=== PATIENT | male | born 1990 | race Caucasian/White ===

== ENCOUNTER 2017-01-10 05:16 | Emergency (ER) | payer BC ==
[~2017-01-10] VITALS: Ht 172.7 cm; Wt 102.2 kg
[2017-01-10] MEDS ORDERED: SODIUM CHLORIDE 0.9% 1,000 ML IV ONE (06:16)
[2017-01-10 06:30] LABS: BASOPHILS % 0.5 % (0.0-2.0); HEMATOCRIT. 44.5 % (42.0-52.0); HEMOGLOBIN. 15.4 g/dL (14.0-18.0); LYMPHOCYTES % 30.8 % (20.0-50.0); MEAN CORPUSCULAR HEMOGLOBIN 30.1 pg (28.0-32.0); MEAN CORPUSCULAR VOLUME 87.1 fL (80.0-94.0); MEAN PLATELET VOLUME 7.6 fl (7.4-10.4); MONOCYTES % 10.1 % (2.0-8.0); NEUTROPHILS % 55.6 % (40.0-76.0); PLATELET 266 x1000/uL (130-400); RED BLOOD CELL COUNT 5.11 mill/uL (4.7-6.1); RED CELL DISTRIBUTION WIDTH 13.2 % (11.6-14.6)
[2017-01-10] MEDS ORDERED: LORAZEPAM 2MG/ML CPJ IV ONE ×2 (06:30→08:00)
[2017-01-10 06:35] LABS: CHLORIDE 109 mEq/L (98-107)
[2017-01-10 06:38] LABS: INR 1.1; PARTIAL THROMBOPLASTIN TIME 29.8 sec (24.0-34.0); PROTHROMBIN TIME 10.9 sec
[2017-01-10 06:44] LABS: CARBON DIOXIDE 24 mEq/L (21-32)
[2017-01-10 07:22] LABS: CREATINE KINASE 156 IU/L (39-308); CREATINE KINASE MB FRACTION < 0.5 ng/mL (0.5-3.6); TROPONIN I < 0.02 ng/mL (0.00-0.04)
[2017-01-10 07:56] LABS: GLUCOSE URINE NEGATIVE (NEGATIVE); KETONES URINE NEGATIVE (NEGATIVE); LEUKOCYTE ESTERASE URINE NEGATIVE (NEGATIVE); NITRITE URINE NEGATIVE (NEGATIVE); OCCULT BLOOD URINE 3+ (NEGATIVE); PH URINE 5.5 (4.5-8.0); PROTEIN URINE NEGATIVE (NEGATIVE); SPECIFIC GRAVITY URINE 1.016 (1.005-1.030); UROBILINOGEN URINE 0.2 E.U./dL (0.2-1.0)
[2017-01-10 07:57] LABS: CLARITY URINE CLEAR (CLEAR); COLOR URINE YELLOW (YELLOW)
[2017-01-10 08:07] LABS: *AMPHETAMINES SCREEN URINE NEGATIVE (NEGATIVE); *BARBITURATES SCREEN URINE NEGATIVE (NEGATIVE); *BENZODIAZEPINES SCREEN URINE NEGATIVE (NEGATIVE); *COCAINE SCREEN URINE PRESUMTIVE POSITIVE (NEGATIVE); CANNABINOID URINE SCREEN NEGATIVE (NEGATIVE); METHADONE URINE SCREEN NEGATIVE (NEGATIVE); OPIATES URINE SCREEN NEGATIVE (NEGATIVE); PHENCYCLIDINE URINE SCREEN NEGATIVE (NEGATIVE)
[2017-01-10 08:47] VITALS: BP 134/70
== END 2017-01-10 09:12 | disposition home or self-care (01) ==
LOC: ER 06:21
DX: F14.129 Cocaine abuse with intoxication, unspecified (principal); R00.0 Tachycardia, unspecified; R31.0 Gross hematuria
CPT/HCPCS: 36415; 71010; 74176; 80053; 80305; 81001; 82550; 82553; 83690; 84484; 85025; 85610; 85730; 86850; 86900; 86901; 87086; 93005; 96361; 96374; 96376; 99285; J2060; J7030; Z7610